=== PATIENT | female | born 2000 | race Two or more races ===

== ENCOUNTER 2019-07-25 23:31 | Emergency (ER) | payer MEDICAID ==
--- NOTE | 2019-07-25 23:44 | ER Document Report ---
ED Medical Screen (RME) - General Stated Complaint: BELLY BUTTON INJURY Time Seen by Provider: 07/25/19 23:39 Mode of Arrival: Ambulatory Information source: Patient Notes: Patient is an otherwise healthy 18-year-old female presenting to the emergency department chief complaint of bleeding from a new piercing on her bellybutton. She states this started around 2:00 this afternoon immediately after having the piercing done. She states it has been continuously bleeding since that time. Active bleeding noted in triage. New dressing applied. I have greeted and performed a rapid initial assessment of this patient. A comprehensive ED assessment and evaluation of the patient, analysis of test results and completion of the medical decision making process will be conducted by additional ED providers. I have specifically instructed the patient or family members with the patient to immediately return to any nursing staff should anything change in the patient's condition or with their chief complaint. Physical Exam - Vital signs Vitals: Temp Pulse Resp BP Pulse Ox 99.1 F 127 H 20 156/102 H 99 07/25/19 23:37 07/25/19 23:37 07/25/19 23:37 07/25/19 23:37 07/25/19 23:37 Course - Vital Signs Vital signs: Temp Pulse Resp BP Pulse Ox 99.1 F 127 H 20 156/102 H 99 07/25/19 23:41 07/25/19 23:37 07/25/19 23:37 07/25/19 23:37 07/25/19 23:37
[2019-07-26] MEDS ORDERED: LIDOCAINE 2%/EPINEPHRINE INJ 20 ML VIAL INJ ONE (01:19)
--- NOTE | 2019-07-26 01:27 | ER Document Report ---
Entered by JADEN AVILA SCRIBE 07/26/19 0116 Acting as scribe for:ANTOINE ONEILL IV, MD ED Wound - General Chief Complaint: Puncture Wound Stated Complaint: BELLY BUTTON INJURY Time Seen by Provider: 07/25/19 23:39 Mode of Arrival: Ambulatory Information source: Patient Notes: This 18 year old female patient presents to the ED today with complaints of bleeding from a new belly button piercing. Patient states that the bleeding started immediately after she got the piercing around 1400 yesterday afternoon and that it has continued to bleed since. She notes pain in that area, which was expected, but denies any other symptoms. Past Medical History - General Information source: Patient - Social History Smoking Status: Never Smoker Cigarette use (# per day): No Chew tobacco use (# tins/day): No Smoking Education Provided: No Family History: Reviewed & Not Pertinent Patient has suicidal ideation: No Patient has homicidal ideation: No Review of Systems - Review of Systems Constitutional: No symptoms reported EENT: No symptoms reported Cardiovascular: No symptoms reported Respiratory: No symptoms reported Gastrointestinal: See HPI, Abdominal pain Genitourinary: No symptoms reported Female Genitourinary: No symptoms reported Musculoskeletal: No symptoms reported Skin: See HPI, Other - Bleeding from belly button piercing Hematologic/Lymphatic: No symptoms reported Neurological/Psychological: No symptoms reported -: Yes All other systems reviewed and negative Physical Exam - Vital signs Vitals: Temp Pulse Resp BP Pulse Ox 99.1 F 127 H 20 156/102 H 99 07/25/19 23:37 07/25/19 23:37 07/25/19 23:37 07/25/19 23:37 07/25/19 23:37 - General General appearance: Alert In distress: None - HEENT Head: Normocephalic, Atraumatic Eyes: Normal Pupils: PERRL - Respiratory Respiratory status: No respiratory distress Chest status: Nontender Breath sounds: Normal Chest palpation: Normal - Cardiovascular Rhythm: Regular Heart sounds: Normal auscultation Murmur: No Friction rub: No Gallop: None auscultated - Abdominal Inspection: Other - Belly button piercing Distension: No distension Bowel sounds: Normal Tenderness: Nontender - Abdomen soft Organomegaly: No organomegaly - Back Back: Normal, Nontender - Extremities General upper extremity: Normal inspection General lower extremity: Normal inspection - Neurological Neuro grossly intact: Yes Orientation: AAOx4 [place]gett Coma Scale Eye Opening: Spontaneous [place] Coma Scale Verbal: Oriented Caio Coma Scale Motor: Obeys Commands [place] Coma Scale Total: 15 - Psychological Associated symptoms: Normal affect, Normal mood - Skin Skin irregularity: other - Belly button piercing with persistent bleeding Course - Re-evaluation Re-evalutation: 07/26/19 01:59 Treatment and plan of care discussed with patient. Patient instructed to return in 5 days for suture removal. Emergency signs and symptoms, reasons to return to the emergency department discussed patient. All questions were answered prior to discharge. - Vital Signs Vital signs: Temp Pulse Resp BP Pulse Ox 100.2 F 110 H 18 162/104 H 99 07/26/19 00:15 07/26/19 00:15 07/26/19 00:15 07/26/19 00:15 07/26/19 00:15 Procedures - Laceration/Wound Repair Abdomen Time completed: 02:00 - To persistently bleeding punctate sites one present in the same Debra her umbilicus and 1 just superior to the umbilicus. The new piercing was left in and sutures were placed above and below where the piercing ends emanating from Wound length (cm): 0.2 Wound's Depth, Shape: Superficial Laceration pre-procedure: Sterile PPE donned, Chloraprep applied, Sterile drapes applied Anesthetic type: 1% Lidocaine w/epi Volume Anesthetic (mLs): 5 Wound explored: Clean Wound Repaired With: Sutures Suture Size/Type: 4:0, Prolene Number of Sutures: 4 - Simple interrupted Layer Closure?: No Post-procedure wound care: Sterile dressing applied Post-procedure NV exam normal: Yes Complications: No Discharge - Discharge Clinical Impression: Puncture wound of abdomen Qualifiers: Encounter type: initial encounter Qualified Code(s): S31.139A - Puncture wound of abdominal wall without foreign body, unspecified quadrant without penetration into peritoneal cavity, initial encounter Condition: Good Disposition: HOME, SELF-CARE Additional Instructions: Return to the Emergency Department without delay if any worse. Follow-up with your doctor or return to the emergency department in 5 days for suture removal. Seek medical care sooner if your piercing sites become very red, swollen, painful or ooze pus or start to persistently bleed again. HOME CARE INSTRUCTIONS & INFORMATION: Thank you for choosing us for your medical needs. We hope you're satisfied with the care you received. After you leave, you must properly care for your problem and, at the same time, observe its progress. Any condition can change. Some illnesses can change rapidly over hours or days. If your condition worsens, return to the Emergency Department or see your physician promptly. ABOUT YOUR X-RAYS AND EKG'S: If you had an EKG or X-rays taken, they have been read by the Emergency Physician. The X-rays and EKG's will also be read by a Radiologist or [employer] within 24 hours. If discrepancies are noted, you will be notified by telephone. Please be certain the ED has a correct telephone number & address where you can be reached. Also, realize that some fractures or abnormalities do not show up on initial X-rays. If your symptoms continue, see your physician. ABOUT YOUR LABORATORY TEST: If you had laboratory tests, the results have been reviewed by the Emergency Physician. Some test results (for example cultures) may not be available for several days. You will be contacted if any test result shows you need additional treatment. Please be certain the ED has a correct telephone number and address where you can be reached. ABOUT YOUR MEDICATIONS: You will receive instructions on how to take your medicine on the prescription label you receive. Additional information may be provided by the Pharmacy. If you have questions afterwards, call the ED for clarification or further instructions. Some prescribed medications may cause drowsiness. Do not perform tasks such as driving a car or operating machinery without consulting your Pharmacist. If you feel you need a refill of pain medication, your condition will need re-evaluation. Please do not call for a refill of any medication. ABOUT YOUR SIGNATURE: Signature of this document acknowledges to followin. Understanding that you received emergency treatment and that you may be released before al medical problems are known or treated. Please be certain the ED has a correct phone number & address where you can be reached. 2. Acknowledgement that you will arrange for follow-up care as recommended. 3. Authorization for the Emergency Physician to provide information to your follow-up Physician in order to maximize your care. AT ANY TIME, IF YOUR SYMPTOMS CHANGE SIGNIFICANTLY OR WORSEN OR YOU DEVELOP NEW SYMPTOMS, RETURN TO THE EMERGENCY DEPARTMENT IMMEDIATELY FOR RE-EVALUATION. OUR GOAL IS TO PROVIDE EXCELLENT MEDICAL CARE! WE HOPE THAT WE HAVE MET YOUR EXPECTATIONS DURING YOUR EMERGENCY DEPARTMENT VISIT AND THAT YOU FEEL YOU HAVE RECEIVED EXCELLENT CARE! I personally performed the services described in the documentation, reviewed and edited the documentation which was dictated to the scribe in my presence, and it accurately records my words and actions.
[2019-07-26 02:22] VITALS: BP 133/75
== END 2019-07-26 02:21 | disposition home or self-care (01) ==
LOC: ER 23:31
DX: S31.139A Puncture wound of abdominal wall without foreign body, unspecified quadrant without penetration into peritoneal cavity, initial encounter (principal); W26.8XXA Contact with other sharp object(s), not elsewhere classified, initial encounter
CPT/HCPCS: 99282; 12001; J3490

== ENCOUNTER 2019-07-31 13:33 | Emergency (ER) | payer OTHER, MEDICAID ==
[2019-07-31 13:46] VITALS: BP 122/71
--- NOTE | 2019-07-31 13:49 | ER Document Report ---
ED Suture/Wound Recheck - General Chief Complaint: Suture Removal Stated Complaint: REMOVAL OF SUTURES Time Seen by Provider: 07/31/19 13:40 Primary Care Provider: [facility] [Provider Group] - Follow up as needed [facility] [Provider Group] - Follow up as needed Mode of Arrival: Ambulatory Information source: Patient Notes: 18-year-old female presented to ED for suture removal from her umbilical area. She states that she had a bellybutton ring placed on the seventh and they somehow hit a artery that bled for about 7 hours and she had to have sutures placed in order to stop the bleeding. She states she was told to have them removed in 5 days. She is now the 13th and is here to have her sutures removed. There is no signs of any infection no bleeding noted. She states she is not having any pain or discomfort. We will remove the sutures at this time. She still has the bellybutton ring in place and there is no signs of infection. - HPI Previous ED treatment: Bellybutton piercing bleeding Quality of pain: No pain Severity: None Pain Level: Denies Context: Other - Bellybutton piercing Symptoms since procedure: No complaints Exacerbated by: Denies Relieved by: Denies - Related Data Allergies/Adverse Reactions: No Known Allergies Allergy (Unverified 07/31/19 13:40) Past Medical History - General Information source: Patient - Social History Smoking Status: Never Smoker Frequency of alcohol use: None Drug Abuse: None Family History: Reviewed & Not Pertinent Patient has homicidal ideation: No - Past Medical History Cardiac Medical History: Reports: None Pulmonary Medical History: Reports: None EENT Medical History: Reports: None Neurological Medical History: Reports: None Endocrine Medical History: Reports: None Renal/ Medical History: Reports: None Malignancy Medical History: Reports: None GI Medical History: Reports: None Musculoskeletal Medical History: Reports None Skin Medical History: Reports None Psychiatric Medical History: Reports: None Traumatic Medical History: Reports: None Review of Systems - Review of Systems Constitutional: No symptoms reported EENT: No symptoms reported Cardiovascular: No symptoms reported Respiratory: No symptoms reported Gastrointestinal: No symptoms reported Genitourinary: No symptoms reported Female Genitourinary: No symptoms reported Musculoskeletal: No symptoms reported Skin: Other - Sutures around the leg is due to a "bellybutton ring " Hematologic/Lymphatic: No symptoms reported Neurological/Psychological: No symptoms reported -: Yes All other systems reviewed and negative Physical Exam - Vital signs Vitals: Temp Pulse Resp BP Pulse Ox 99.1 F 99 H 16 122/71 100 07/31/19 13:39 07/31/19 13:39 07/31/19 13:39 07/31/19 13:39 07/31/19 13:39 Interpretation: Normal - General General appearance: Appears well, Alert - HEENT Head: Normocephalic, Atraumatic Eyes: Normal Pupils: PERRL - Respiratory Respiratory status: No respiratory distress Chest status: Nontender Breath sounds: Normal Chest palpation: Normal - Cardiovascular Rhythm: Regular Heart sounds: Normal auscultation Murmur: No - Abdominal Inspection: Normal, Other - Sutures around both ends of the bellybutton piercing. No redness no inflammation no drainage. Area has healed well no signs of infection Distension: No distension Bowel sounds: Normal Tenderness: Nontender Organomegaly: No organomegaly - Back Back: Normal, Nontender - Extremities General upper extremity: Normal inspection, Nontender, Normal color, Normal ROM, Normal temperature General lower extremity: Normal inspection, Nontender, Normal color, Normal ROM, Normal temperature, Normal weight bearing. No: Bettie's sign - Neurological Neuro grossly intact: Yes Cognition: Normal Orientation: AAOx4 Caio Coma Scale Eye Opening: Spontaneous [place] Coma Scale Verbal: Oriented Caio Coma Scale Motor: Obeys Commands [place] Coma Scale Total: 15 Speech: Normal Motor strength normal: LUE, RUE, LLE, RLE Sensory: Normal - Psychological Associated symptoms: Normal affect, Normal mood - Skin Skin Temperature: Warm Skin Moisture: Dry Skin Color: Normal Course - Re-evaluation Re-evalutation: 07/31/19 22:17 Sutures removed, bacitracin applied, patient was discharged home to follow-up with her primary care doctor. Patient tolerated procedure well. - Vital Signs Vital signs: Temp Pulse Resp BP Pulse Ox 99.1 F 99 H 16 122/71 100 07/31/19 13:40 07/31/19 13:39 07/31/19 13:39 07/31/19 13:39 07/31/19 13:39 Discharge - Discharge Clinical Impression: Visit for suture removal Condition: Stable Disposition: HOME, SELF-CARE Instructions: Suture Removal Additional Instructions: SOAP CLEANSING: Gently wash the wound daily using a mild soap (like Ivory, Phisoderm, Neutrogena). Use warm water, rubbing gently until all debris, ooze, and crusting have been washed from the wound. Allow to dry briefly (about 10 minutes) after cleaning. Repeat this cleansing at least three times a day for the first two days and then once or twice a day. ANTIBIOTIC OINTMENT PROTECTION: Your wounds are such that dressing them is not practical or optional. After cleansing, you should apply a thin coating of antibiotic ointment (Bacitracin, not Neosporin) to the wounds at least three times daily. This lessens infection risk, and may decrease the amount of scarring. Use a q-tip or dull butter knife, not your finger, to apply this ointment. Any debris or ooze which builds up in the ointment should be gently rubbed off with a sterile gauze pad. Harder crusting may need to be gently scrubbed off with a clean wash cloth with soap and warm water, perhaps applying a warm, wet wash cloth to the wound for ten minutes first. Development of redness, severe itching, or blistering may mean allergy to the ointment. See the doctor. FOLLOW-UP CARE: If you have been referred to a physician for follow-up care, call the physicians office for an appointment as you were instructed or within the next two days. If you experience worsening or a significant change in your symptoms, notify the physician immediately or return to the Emergency Department at any time for re-evaluation. Referrals: [facility] [Provider Group] - Follow up as needed [facility] [Provider Group] - Follow up as needed
== END 2019-07-31 13:59 | disposition home or self-care (01) ==
LOC: ER 13:33
DX: S31.12 Laceration with foreign body of abdominal wall without penetration into peritoneal cavity (principal); X58.XXXD Exposure to other specified factors, subsequent encounter

== ENCOUNTER 2019-08-17 10:13 | Emergency (ER) | payer OTHER, MEDICAID ==
[2019-08-17 10:18] VITALS: BP 124/85
[2019-08-17] MEDS ORDERED: AZITHROMYCIN 250 MG TABLET PO ONE (11:06)
[2019-08-17] MEDS ORDERED: LIDOCAINE 1% INJ (10 MG/ML) 10 ML MDV INJ ONE (11:06)
[2019-08-17] MEDS ORDERED: PHENAZOPYRIDINE HCL 200 MG TABLET PO ONE (11:06)
[2019-08-17] MEDS ORDERED: CEFTRIAXONE INJ 1000 MG VIAL IM ONE (11:06)
--- NOTE | 2019-08-17 11:08 | ER Document Report ---
HPI - HPI Patient complains to provider of: UTI Time Seen by Provider: 08/17/19 11:00 Onset: Last week Onset/Duration: Persistent Quality of pain: Burning Pain Level: 3 Context: Patient presents complaining of dysuria and urgency for the past week. Patient is concerned about possible UTI. Patient did finish antibiotics to treat strep throat recently. Patient does have concerns about possible STI. No flank or abdominal pain. Associated Symptoms: denies: Fever, Nausea, Vomiting Exacerbated by: Denies Relieved by: Denies Similar symptoms previously: Yes Recently seen / treated by doctor: Yes - ROS ROS below otherwise negative: Yes Systems Reviewed and Negative: Yes All other systems reviewed and negative - CONSTITUTIONAL Constitutional: DENIES: Fever, Chills - GASTROINTESTINAL Gastrointestinal: DENIES: Abdominal Pain, Nausea, Patient vomiting - URINARY Urinary: REPORTS: Dysuria, Urgency - REPRODUCTIVE Reproductive: DENIES: : - MUSCULOSKELETAL Musculoskeletal: DENIES: Back Pain - DERM Skin Color: Normal Skin Problems: None Past Medical History - General Information source: Patient - Social History Smoking Status: Never Smoker Frequency of alcohol use: None Drug Abuse: None 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 negative: CVA Tenderness-Right, CVA Tenderness-Left - MUSCULOSKELETAL/EXTREMETIES Musculoskeletal/Extremeties: FANNY FROM - NEURO Level of Consciousness: Awake, Alert, Appropriate Motor/Sensory: No Motor Deficit - DERM Integumentary: Warm, Dry, No Rash Course - Re-evaluation Re-evalutation: 08/17/19 Patient with UTI, no concern for pyelonephritis or sepsis at this time. Patient reports mild nausea after taking the antibiotic. Prescription will be written for some antiemetic medication. Discussed worsening signs or symptoms that patient should return immediately for. - Vital Signs Vital signs: Temp Pulse Resp BP Pulse Ox 98.5 F 82 14 124/85 98 08/17/19 10:16 08/17/19 10:16 08/17/19 10:16 08/17/19 10:16 08/17/19 10:16 - Laboratory Laboratory results interpreted by me: 08/17/19 11:58 Labs- All tests 24 hr 08/17/19 08/17/19 11:17 11:17 Urine Color YELLOW Urine Appearance CLOUDY Urine pH 7.0 Ur Specific [place] 1.015 Urine Protein NEGATIVE Urine Glucose (UA) NEGATIVE Urine Ketones NEGATIVE Urine Blood SMALL H Urine Nitrite NEGATIVE Urine Bilirubin NEGATIVE Urine Urobilinogen NEGATIVE Ur Leukocyte Esterase LARGE H Urine WBC (Auto) >182 Urine RBC (Auto) 15 Urine Bacteria (Auto) TRACE Urine WBC Clumps FEW Squamous Epi Cells Auto 6 Urine Mucus (Auto) RARE Urine Ascorbic Acid NEGATIVE Epi Cells (Wet Prep) 4+ EPITHELIALS SEEN Bacteria (Wet Prep) 4+ BACTERIA SEEN Trichomonas (Wet Prep) NO TRICHOMONAS SEEN Vaginal WBC 2+ WBCS SEEN Vaginal Yeast NO YEAST SEEN Discharge - Discharge Clinical Impression: Bacterial vaginosis UTI (urinary tract infection) Qualifiers: Urinary tract infection type: site unspecified Hematuria presence: with hematuria Qualified Code(s): N39.0 - Urinary tract infection, site not specified Condition: Stable Disposition: HOME, SELF-CARE Instructions: Trimethoprim-Sulfa ([facility]), Urinary Anesthetic Agent ([facility]), Urinary Tract Infection ([facility]), Vaginosis, Bacterial ([facility]) Additional Instructions: Return immediately for any new or worsening symptoms Followup with your primary care provider, call tomorrow to make a followup appointment Urine culture is pending, we will call if you need any different treatment Prescriptions: Sulfamethoxazole/Trimethoprim [Bactrim Ds Tablet] 1 each PO BID #14 tablet Metronidazole [Flagyl 500 mg Tablet] 500 mg PO BID #14 tablet Phenazopyridine HCl [Pyridium 200 mg Tablet] 200 mg PO TID #15 tablet Ondansetron [Zofran Odt 4 mg Tablet] 1 tab PO Q6H PRN #10 tab.rapdis PRN Reason: Forms: Return to Work Referrals: [facility] [Provider Group] - Follow up as needed
[2019-08-17] MEDS ORDERED: AZITHROMYCIN 250 MG TABLET ONE (11:18)
[2019-08-17 11:41] LABS: BACTERIA (WET MOUNT) 4+ BACTERIA SEEN; EPITHELIALS (WET MOUNT) 4+ EPITHELIALS SEEN; T.VAGINALIS (WET MOUNT) NO TRICHOMONAS SEEN; WBCS (WET MOUNT) 2+ WBCS SEEN; YEAST (WET MOUNT) NO YEAST SEEN
[2019-08-17 11:53] LABS: APPEARANCE,URINE CLOUDY; BILIRUBIN,URINE NEGATIVE (NEGATIVE); COLOR,URINE YELLOW; GLUCOSE, URINE NEGATIVE (NEGATIVE); KETONES,URINE NEGATIVE (NEGATIVE); LEUKOCYTE ESTERASE,URINE LARGE (NEGATIVE); NITRITE,URINE NEGATIVE (NEGATIVE); PROTEIN,URINE NEGATIVE (NEGATIVE); URINE SPECIFIC GRAVITY 1.015; UROBILINOGEN,URINE NEGATIVE mg/dL (<2.0)
[2019-08-17 13:09] LABS: CHLAM PCR NOT DETECTED (NOT DETECT)
== END 2019-08-17 12:03 | disposition home or self-care (01) ==
LOC: ER 10:13
DX: N30.00 Acute cystitis without hematuria (principal); N76.0 Acute vaginitis; B96.89 Other specified bacterial agents as the cause of diseases classified elsewhere
CPT/HCPCS: 99283; 96372; 87086; 87210; 87088; 81001; 87491; 87591; J3490; J0696; 87186

== ENCOUNTER 2019-08-23 20:22 | Emergency (ER) | payer OTHER, MEDICAID ==
--- NOTE | 2019-08-23 23:59 | ER Document Report ---
ED General - General Chief Complaint: Urinary Problem Stated Complaint: FEVER/WEAKNESS Time Seen by Provider: 08/23/19 23:24 Notes: Patient is a 18-year-old female that comes emergency department for chief complaint of a low-grade fever this afternoon with generalized body aches, lower back pain, pain in her lower abdomen, and painful urination. She was seen here 1 week ago, had a negative work-up for STDs, was started on Bactrim and Flagyl for BV and urinary tract infection. She states that she has not yet completed her medications for this. 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 She denies shortness of breath, cough, chest pain, headache, neck stiffness, or any current complaints. She takes no daily medications, denies medical history otherwise. - Related Data Allergies/Adverse Reactions: No Known Allergies Allergy (Unverified 07/31/19 13:40) Past Medical History - General Information source: Patient - Social History Smoking Status: Never Smoker Chew tobacco use (# tins/day): No Frequency of alcohol use: None Drug Abuse: None Lives with: Family Family History: Reviewed & Not Pertinent Patient has homicidal ideation: No Renal/ Medical History: Reports: Hx Ovarian Cysts - Immunizations Immunizations up to date: Yes Hx Diphtheria, Pertussis, Tetanus Vaccination: Yes Review of Systems - Review of Systems Constitutional: See HPI EENT: No symptoms reported Cardiovascular: No symptoms reported Respiratory: No symptoms reported Gastrointestinal: See HPI Genitourinary: See HPI Female Genitourinary: No symptoms reported Musculoskeletal: See HPI Skin: No symptoms reported Hematologic/Lymphatic: No symptoms reported Neurological/Psychological: No symptoms reported Physical Exam - Vital signs Vitals: Temp Pulse Resp BP Pulse Ox 99.8 F 99 H 20 117/86 H 100 08/23/19 21:11 08/23/19 21:11 08/23/19 21:11 08/23/19 21:11 08/23/19 21:11 - Notes Notes: GENERAL: Alert, interacts well. No acute distress. Smiling, talkative, well- appearing HEAD: Normocephalic, atraumatic. EYES: Pupils equal, round, and reactive to light. Extraocular movements intact. ENT: Oral mucosa moist, tongue midline. Oropharynx unremarkable. Airway patent. Nares patent, sinuses non-tender, ear canals unremarkable, TM's intact. NECK: Full range of motion. Supple. Trachea midline. No lymphadenopathy. LUNGS: Clear to auscultation bilaterally, no wheezes, rales, or rhonchi. No respiratory distress. Non-tender chest wall. HEART: Regular rate and rhythm. No murmur ABDOMEN: Soft, non-tender. Non-distended. EXTREMITIES: Moves all 4 extremities spontaneously. No edema, normal radial and dorsalis pedis pulses bilaterally. No cyanosis. BACK: no cervical, thoracic, lumbar midline tenderness. No saddle anesthesia, normal distal neurovascular exam. Moves all extremities in full range of motion. NEUROLOGICAL: Alert and oriented x3. Normal speech. Cranial nerves II through XII grossly intact. Strength 5/5 in all extremities. PSYCH: Normal affect, normal mood. SKIN: Warm, dry, normal turgor. No rashes or lesions noted. Course - Re-evaluation Re-evalutation: Urine culture from UTI about a week ago reviewed and shows sensitivity to Bactrim. Patient is on Bactrim and Flagyl currently. Urine today shows ketones but no infection. CBC shows mild leukopenia, chemistry nonspecific, patient looks great on exam with soft abdomen, clear lungs, no nuchal rigidity, unremarkable ENT exam, and she is smiling and well-appearing. Vital signs unremarkable. 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 Discussed expectations, follow-up, and return precautions. Patient states understanding and agreement with plan. Stable and well-appearing at time of discharge. - Vital Signs Vital signs: Temp Pulse Resp BP Pulse Ox 99.2 F 80 16 111/68 100 08/24/19 02:00 08/24/19 02:00 08/24/19 02:00 08/24/19 02:00 08/24/19 02:00 - Laboratory Result Diagrams: 08/24/19 00:49 08/24/19 00:49 Laboratory results interpreted by me: 08/24/19 08/24/19 08/24/19 00:15 00:49 00:49 WBC 3.4 L RDW 14.3 H [place] % (Auto) 19.9 H Sodium 132.7 L Carbon Dioxide 21 L BUN 4 L AST 33 H Alkaline Phosphatase 48 L Urine Ketones TRACE H Urine Ascorbic Acid 40 H Discharge - Discharge Clinical Impression: Body aches, Dysuria Fever Qualifiers: Fever type: unspecified Qualified Code(s): R50.9 - Fever, unspecified Condition: Stable Disposition: HOME, SELF-CARE Additional Instructions: Your urine culture from last visit shows that the antibiotic you are taking will kill the infection. Your urine does not appear infected as well. Your overall work-up and symptoms are most suggestive of viral illness, this should simply resolve with time. Take 1000 mg of Tylenol and 600 mg of ibuprofen every 6 hours for fever/body aches, drink plenty fluids, rest. You have been tested for COVID-19, you will be contacted with results, see additional details below. Return for any concerning symptoms including difficulty breathing, vomiting, or any other concerning or worsening symptoms. As a person under investigation for COVID-19, the [place] Department of Health and Human Services (division on public health) advises you to adhere to the following guidance until your test results are reported to you. If your test result is positive, you will receive additional information from your provider and your local health department at that time. Remain at home until you are cleared by the health provider or public health authorities. Keep a log of visitors to your home, notify any visitors to your home of your isolation status. If you plan to move to a new address or leave the [facility], notify the local [facility] department in your [facility]. Call your Doctor or seek care if you have an urgent medical need. Before seeking medical care, call him to get instructions from the provider before arriving at the medical office, clinic, or hospital. Notify them that you are being tested for the virus (COVID-19) so that arrangements can be made, as necessary, to prevent transmission to others in the healthcare setting. Next, notify the local health department in your county. If a medical emergency arises and you need to call 911, inform the first responders that you are being tested for the virus that causes COVID-19. Next, notify the local health department in your county. Forms: Return to Work
[2019-08-24 00:51] LABS: APPEARANCE,URINE CLEAR; BILIRUBIN,URINE NEGATIVE (NEGATIVE); COLOR,URINE YELLOW; GLUCOSE, URINE NEGATIVE (NEGATIVE); KETONES,URINE TRACE mg/dL (NEGATIVE); LEUKOCYTE ESTERASE,URINE NEGATIVE (NEGATIVE); NITRITE,URINE NEGATIVE (NEGATIVE); PROTEIN,URINE NEGATIVE (NEGATIVE); URINE SPECIFIC GRAVITY 1.015; UROBILINOGEN,URINE NEGATIVE mg/dL (<2.0)
[2019-08-24 00:58] LABS: ABSOLUTE EOSINOPHILS # (AUTO) 0.1 10^3/uL (0.0-0.6); ABSOLUTE LYMPHOCYTES (AUTO) 0.8 10^3/uL (0.5-4.7); ABSOLUTE MONOCYTES (AUTO) 0.7 10^3/uL (0.1-1.4); ABSOLUTE NEUT (AUTO) 1.8 10^3/uL (1.7-8.2); BASOPHILS % (AUTO) 0.9 % (0-2); HEMATOCRIT 36.4 % (36.0-47.0); HEMOGLOBIN 12.8 g/dL (12.0-15.5); LYMPHOCYTES % (AUTO) 22.8 % (13-45); MEAN CORPUSCULAR HEMOGLOBIN 29.5 pg (27.0-33.4); MEAN CORPUSCULAR VOLUME 84 fl (80-97); MONOCYTES % (AUTO) 19.9 % (3-13); PLATELET COUNT 250 10^3/uL (150-450); RED BLOOD COUNT 4.32 10^6/uL (3.72-5.28); RED CELL DISTRIBUTION WIDTH 14.3 % (11.5-14.0); SEGMENTED NEUTROPHILS % (AUTO) 53.4 % (42-78); TOTAL CELLS COUNTED % (AUTO) 100 %; WHITE BLOOD COUNT 3.4 10^3/uL (4.0-10.5)
[2019-08-24 01:23] LABS: ALBUMIN 4.1 g/dL (3.7-5.6); ALKALINE PHOSPHATASE 48 U/L (50-135); ANION GAP 9 (5-19); ASPARTATE AMINO TRANSFERASE 33 U/L (5-30); BILIRUBIN,TOTAL 0.2 mg/dL (0.2-1.3); BLOOD UREA NITROGEN 4 mg/dL (7-20); CALCIUM 9.1 mg/dL (8.4-10.2); CARBON DIOXIDE 21 mmol/L (22-30); CHLORIDE 103 mmol/L (98-107); GLUCOSE 108 mg/dL (75-110); POTASSIUM 4.2 mmol/L (3.6-5.0); TOTAL PROTEIN 7.2 g/dL (6.3-8.2)
[2019-08-24 02:04] VITALS: BP 111/68
== END 2019-08-24 02:10 | disposition home or self-care (01) ==
LOC: ER 20:22
DX: M79.10 Myalgia, unspecified site (principal); R30.0 Dysuria; R50.9 Fever, unspecified; R53.1 Weakness; Z20.828 Contact with and (suspected) exposure to other viral communicable diseases
CPT/HCPCS: 99284; 36415; 87086; 85025; 87635; 81025; 87088; 80053; 81001; C9803; 87186

== ENCOUNTER 2019-10-23 15:37 | Emergency (ER) | payer OTHER, MEDICAID ==
[2019-10-23] MEDS ORDERED: NORMAL SALINE 1000 ML 1,000 ML IV ONE (15:48)
[2019-10-23] MEDS ORDERED: ONDANSETRON HCL INJ/PF 4 MG/2 ML SDV IV ONE (15:48)
--- NOTE | 2019-10-23 15:51 | ER Document Report ---
ED Medical Screen (RME) - General Chief Complaint: Pain With Urination Stated Complaint: PAINFUL URINATION,BACK PAIN Time Seen by Provider: 10/23/19 15:39 Mode of Arrival: Ambulatory Information source: Patient Notes: 19-year-old female presents to ED for complaint of flank pain feeling sick dizziness blurred vision. She states she was seen 2 days ago at urgent care they diagnosed her with a UTI and started on Bactrim DS. She states she has become more dizzy has blurred vision and is feeling more sick. She states they gave her Toradol and Rocephin IM while in the urgent care and then sent her home with a prescription for Bactrim. She states she has taken the Bactrim for 2 days but the last time she took Bactrim she did get sick and was blurry vision. She states the pain in her urine the frequency and the back pain have all gotten much worse in the last 2 days. I have greeted and performed a rapid initial assessment of this patient. A comprehensive ED assessment and evaluation of the patient, analysis of test results and completion of medical decision making process will be conducted by an additional ED providers. - Related Data Allergies/Adverse Reactions: sulfamethoxazole [From Bactrim] Adverse Reaction (Verified 10/23/19 15:42) Vomiting trimethoprim [From Bactrim] Adverse Reaction (Verified 10/23/19 15:42) Vomiting Past Medical History Renal/ Medical History: Reports: Hx Ovarian Cysts - Immunizations Immunizations up to date: Yes Hx Diphtheria, Pertussis, Tetanus Vaccination: Yes Physical Exam - Vital signs Vitals: Temp Pulse Resp BP Pulse Ox 98.1 F 107 H 16 132/85 H 100 10/23/19 15:41 10/23/19 15:41 10/23/19 15:41 10/23/19 15:41 10/23/19 15:41 Course - Vital Signs Vital signs: Temp Pulse Resp BP Pulse Ox 98.1 F 107 H 16 132/85 H 100 10/23/19 15:41 10/23/19 15:41 10/23/19 15:41 10/23/19 15:41 10/23/19 15:41
[2019-10-23 16:12] LABS: ABSOLUTE EOSINOPHILS # (AUTO) 0.3 10^3/uL (0.0-0.6); ABSOLUTE LYMPHOCYTES (AUTO) 0.7 10^3/uL (0.5-4.7); ABSOLUTE MONOCYTES (AUTO) 0.4 10^3/uL (0.1-1.4); BASOPHILS % (AUTO) 0.7 % (0-2); EOSINOPHILS % (AUTO) 5.3 % (0-6); HEMATOCRIT 41.1 % (36.0-47.0); HEMOGLOBIN 14.4 g/dL (12.0-15.5); LYMPHOCYTES % (AUTO) 11.4 % (13-45); MEAN CORPUSCULAR HEMOGLOBIN 29.3 pg (27.0-33.4); MEAN CORPUSCULAR HGB CONC 35.1 g/dL (32.0-36.0); MEAN CORPUSCULAR VOLUME 84 fl (80-97); MONOCYTES % (AUTO) 6.3 % (3-13); PLATELET COUNT 308 10^3/uL (150-450); RED BLOOD COUNT 4.93 10^6/uL (3.72-5.28); RED CELL DISTRIBUTION WIDTH 14.9 % (11.5-14.0); SEGMENTED NEUTROPHILS % (AUTO) 76.3 % (42-78); TOTAL CELLS COUNTED % (AUTO) 100 %; WHITE BLOOD COUNT 6.5 10^3/uL (4.0-10.5)
[2019-10-23] MEDS ORDERED: KETOROLAC TROMETHAMINE INJ/PF 30 MG/1 ML SDV IV ONE (16:23)
--- NOTE | 2019-10-23 16:24 | ER Document Report ---
ED GI/ - General Chief Complaint: Flank Pain Stated Complaint: PAINFUL URINATION,BACK PAIN Time Seen by Provider: 10/23/19 15:39 Mode of Arrival: Ambulatory Information source: Patient Notes: This 19-year-old female presents to the emergency department with a 2-week history of dysuria, urgency frequency. States that she has been seen at multiple urgent cares and was told that her urine was negative and was not treated. On she was seen at a local urgent care, the urine revealed significant infection, she was given a IM injection of Rocephin and started on Bactrim DS. Patient states that over the past 24 hours she is developed fever, increasing left flank and abdominal discomfort. She is also had nausea, vomiting and feeling lightheaded and dizzy. She has a history of a UTI in the past, POCS and is otherwise a healthy 19-year-old. - Related Data Allergies/Adverse Reactions: sulfamethoxazole [From Bactrim] Adverse Reaction (Verified 10/23/19 15:42) Vomiting trimethoprim [From Bactrim] Adverse Reaction (Verified 10/23/19 15:42) Vomiting Home Medications: Past Medical History - General Information source: Patient - Social History Smoking Status: Never Smoker Frequency of alcohol use: None Drug Abuse: None Family History: Reviewed & Not Pertinent Renal/ Medical History: Reports: Hx Ovarian Cysts - Immunizations Immunizations up to date: Yes Hx Diphtheria, Pertussis, Tetanus Vaccination: Yes Review of Systems - Review of Systems Notes: Constitutional: Negative for fever. HENT: Negative for sore throat. Eyes: Negative for visual changes. Cardiovascular: Negative for chest pain. Respiratory: Negative for shortness of breath. Gastrointestinal: See HPI Genitourinary: See HPI Musculoskeletal: Negative for back pain. Skin: Negative for rash. Neurological: Negative for headaches, weakness or numbness. 10 point ROS negative except as marked above and in HPI. Physical Exam - Vital signs Vitals: Temp Pulse Resp BP Pulse Ox 98.1 F 107 H 16 132/85 H 100 10/23/19 15:41 10/23/19 15:41 10/23/19 15:41 10/23/19 15:41 10/23/19 15:41 - Notes Notes: PHYSICAL EXAMINATION: Physical Exam: General: Well-nourished well-developed 19-year-old female in no acute distress HEENT: NC/AT, pupils equal round and reactive to light, MM moist,nares clear, oropharynx clear, airway patent Neck: supple, no adenopathy, no masses. Good range of motion Lungs: clear, no wheezing, no rales no rhonchi CVS: Regular rate and rhythm no murmur gallop or rub Abdomen: Soft, active, nontender, no masses, no hepatosplenomegaly Back: + CVA tenderness left flank Ext: No edema, clubbing or cyanosis. Neuro: Alert and responsive, moving all 4 extremities on command, cranial nerves intact, no focal findings Skin: Intact no open lesions, no rash PSYCH: Normal mood, normal affect. Course - Re-evaluation Re-evalutation: 10/23/19 19:35 Patient states that she is doing much better at this time, her nausea has resolved and her back pain has also improved. Urine is positive for leukocytes and CT of the abdomen and pelvis is negative for kidney stones or findings s uggestive of pyelonephritis. I explained to the patient that she can be treated as an outpatient we will give her medicines for nausea and pain as well as a change of antibiotic. Patient is in agreement with this plan is ready for discharge. - Vital Signs Vital signs: Temp Pulse Resp BP Pulse Ox 98.1 F 107 H 16 132/85 H 100 10/23/19 15:41 10/23/19 15:41 10/23/19 15:41 10/23/19 15:41 10/23/19 15:41 - Laboratory Result Diagrams: 10/23/19 15:58 10/23/19 15:58 Laboratory results interpreted by me: 10/23/19 10/23/19 10/23/19 15:58 15:58 16:33 RDW 14.9 H Lymph % (Auto) 11.4 L BUN 5 L Urine Protein 30 H Urine Blood MODERATE H Ur Leukocyte Esterase TRACE H 10/23/19 19:37 I have reviewed laboratory data and used this information for the treatment decisions regarding the patient. - Diagnostic Test Radiology reviewed: Image reviewed, Reports reviewed Radiology results interpreted by me: 10/23/19 19:36 CT abdomen and pelvis without contrast: No acute ureteral stone, no findings compatible with pyelonephritis. Discharge - Discharge Clinical Impression: Nausea Urinary tract infection Qualifiers: Urinary tract infection type: site unspecified Hematuria presence: with hematuria Qualified Code(s): N39.0 - Urinary tract infection, site not specified Back pain Qualifiers: Back pain location: low back pain Chronicity: unspecified Back pain laterality: left Sciatica presence: without sciatica Qualified Code(s): M54.5 - Low back pa in Condition: Good Disposition: HOME, SELF-CARE Instructions: Cephalexin ([facility]), Urinary Tract Infection ([facility]) Additional Instructions: You were seen in the emergency department today with urinary tract infection and secondary symptoms of nausea and back pain. You are being discharged home with medications for nausea and for pain as well as a change of antibiotics. Please take these medications as prescribed drink plenty of fluids and follow-up with your primary care doctor as needed. If your symptoms are worsening or if you have other concerns you may return to the emergency department for further evaluation and treatment HOME CARE INSTRUCTIONS & INFORMATION: Thank you for choosing us for your medical needs. We hope you're satisfied with the care you received. After you leave, you must properly care for your problem and, at the same time, observe its progress. Any condition can change. Some illnesses can change rapidly over hours or days. If your condition worsens, return to the Emergency Department or see your physician promptly. ABOUT YOUR X-RAYS AND EKG'S: If you had an EKG or X-rays taken, they have been read by the Emergency Physician. The X-rays and EKG's will also be read by a Radiologist or Hearing Aid Assembly Supervisor within 24 hours. If discrepancies are noted, you will be notified by telephone. Please be certain the ED has a correct telephone number & address where you can be reached. Also, realize that some fractures or abnormalities do not show up on initial X-rays. If your symptoms continue, see your physician. ABOUT YOUR LABORATORY TEST: If you had laboratory tests, the results have been reviewed by the Emergency Physician. Some test results (for example cultures) may not be available for several days. You will be contacted if any test result shows you need additional treatment. Please be certain the ED has a correct telephone number and address where you can be reached. ABOUT YOUR MEDICATIONS: You will receive instructions on how to take your medicine on the prescription label you receive. Additional information may be provided by the Pharmacy. If you have questions afterwards, call the ED for clarification or further instructions. Some prescribed medications may cause drowsiness. Do not perform tasks such as driving a car or operating machinery without consulting your Pharmacist. If you feel you need a refill of pain medication, your condition will need re-evaluation. Please do not call for a refill of any medication. ABOUT YOUR SIGNATURE: Signature of this document acknowledges to followin. Understanding that you received emergency treatment and that you may be released before al medical problems are known or treated. Please be certain the ED has a correct phone number & address where you can be reached. 2. Acknowledgement that you will arrange for follow-up care as recommended. 3. Authorization for the Emergency Physician to provide information to your follow-up Physician in order to maximize your care. AT ANY TIME, IF YOUR SYMPTOMS CHANGE SIGNIFICANTLY OR WORSEN OR YOU DEVELOP NEW SYMPTOMS, RETURN TO THE EMERGENCY DEPARTMENT IMMEDIATELY FOR RE-EVALUATION. OUR GOAL IS TO PROVIDE EXCELLENT MEDICAL CARE! WE HOPE THAT WE HAVE MET YOUR EXPECTATIONS DURING YOUR EMERGENCY DEPARTMENT VISIT AND THAT YOU FEEL YOU HAVE RECEIVED EXCELLENT CARE! Prescriptions: Cephalexin Monohydrate [Keflex 500 mg Capsule] 500 mg PO Q8 10 Days #30 capsule Ondansetron [Zofran Odt 4 mg Tablet] 1 - 2 tab PO Q4H PRN #10 tab.rapdis PRN Reason: For Nausea/Vomiting Ondansetron [Zofran Odt 4 mg Tablet] 1 - 2 tab PO Q4H PRN #12 tab.rapdis PRN Reason: For Nausea/Vomiting
[2019-10-23 16:27] LABS: ALBUMIN 4.8 g/dL (3.5-5.0); ALKALINE PHOSPHATASE 55 U/L (38-126); ANION GAP 12 (5-19); ASPARTATE AMINO TRANSFERASE 25 U/L (14-36); BILIRUBIN,DIRECT 0.3 mg/dL (0.0-0.4); BILIRUBIN,TOTAL 0.7 mg/dL (0.2-1.3); BLOOD UREA NITROGEN 5 mg/dL (7-20); CALCIUM 9.6 mg/dL (8.4-10.2); CARBON DIOXIDE 23 mmol/L (22-30); CHLORIDE 103 mmol/L (98-107); GLUCOSE 108 mg/dL (75-110); POTASSIUM 3.9 mmol/L (3.6-5.0); TOTAL PROTEIN 8.1 g/dL (6.3-8.2)
[2019-10-23 17:14] LABS: APPEARANCE,URINE SLIGHTLY-CLOUDY; BILIRUBIN,URINE NEGATIVE (NEGATIVE); COLOR,URINE YELLOW; GLUCOSE, URINE NEGATIVE (NEGATIVE); KETONES,URINE NEGATIVE (NEGATIVE); LEUKOCYTE ESTERASE,URINE TRACE (NEGATIVE); NITRITE,URINE NEGATIVE (NEGATIVE); PROTEIN,URINE 30 mg/dL (NEGATIVE); URINE SPECIFIC GRAVITY 1.016; UROBILINOGEN,URINE NEGATIVE mg/dL (<2.0)
--- NOTE | 2019-10-23 17:44 | RADIOLOGY REPORT (SQ) ---
EXAM DESCRIPTION: CT ABD/PELVIS NO ORAL OR IV IMAGES COMPLETED DATE/TIME: 10/23/2019 5:23 pm REASON FOR STUDY: flank pain hematuria COMPARISON: None. TECHNIQUE: CT scan of the abdomen and pelvis performed without intravenous or oral contrast. Images reviewed with lung, soft tissue, and bone windows. Reconstructed coronal and sagittal MPR images revi ewed. All images stored on PACS. All CT scanners at this facility use dose modulation, iterative reconstruction, and/or weight based d osing when appropriate to reduce radiation dose to as low as reasonably achievable (ALARA). [facility]: Dose Right [facility]: CareDose [facility]: Dose Right [facility]: Teradose 4D [facility]: [employer] RADIATION DOSE: CT Rad equipment meets quality standard of care and radiation dose reduction techniq ues were employed. CTDIvol: 5.2 mGy. DLP: 263 mGy-cm.mGy. LIMITATIONS: None. FINDINGS: LOWER CHEST: No significant findings. No nodules or infiltrates. NON-CONTRASTED LIVER, SPLEEN, ADRENALS: Evaluation limited by lack of IV contrast. No identified sign ificant masses. PANCREAS: No masses. No peripancreatic inflammatory changes. GALLBLADDER: No identified stones by CT criteria. No inflammatory changes to suggest cholecystitis. RIGHT KIDNEY AND URETER: No solid masses. No significant calcification. No hydronephrosis or hydroure ter. LEFT KIDNEY AND URETER: No solid masses. No significant calcification. No hydronephrosis or hydrouret er. AORTA AND RETROPERITONEUM: No aneurysm. No retroperitoneal masses or adenopathy. BOWEL AND PERITONEAL CAVITY: No obvious masses or inflammatory changes. No free fluid. APPENDIX: Normal. PELVIS, BLADDER, AND ABDOMINAL WALL:No abnormal masses. No free fluid. Bladder normal. BONES: No significant findings. OTHER: No other significant finding. IMPRESSION: NO SIGNIFICANT OR ACUTE PROCESS IN THE ABDOMEN OR PELVIS. TECHNICAL DOCUMENTATION: JOB ID: [id number] Quality ID # [id number]: Final reports with documentation of one or more dose reduction techniques (e.g., Au tomated exposure control, adjustment of the mA and/or kV according to patient size, use of iterative reconstruction technique) 2010 [employer]- All Rights Reserved Reading location - IP/workstation name: [email or web address] [id number]
[2019-10-23] MEDS ORDERED: CEFTRIAXONE INJ 1000 MG VIAL IV ONE (17:51)
[2019-10-23 20:40] VITALS: BP 123/73
== END 2019-10-23 20:33 | disposition home or self-care (01) ==
LOC: ER 15:37
DX: N39.0 Urinary tract infection, site not specified (principal); M54.5 Low back pain; R30.0 Dysuria; R10.9 Unspecified abdominal pain; R11.0 Nausea
CPT/HCPCS: 99285; 96361; 96375; 96365; 36415; 87086; 84703; 85025; 80053; 81001; 74176; J1885; J0696; J2405; J7030

== ENCOUNTER 2020-03-06 17:32 | Emergency (ER) | payer MEDICAID, OTHER ==
[2020-03-06] MEDS ORDERED: NORMAL SALINE 1000 ML 1,000 ML IV ONE (17:46)
[2020-03-06] MEDS ORDERED: METOCLOPRAMIDE HCL 10 MG TABLET PO ONE (17:47)
--- NOTE | 2020-03-06 17:48 | ER Document Report ---
ED Medical Screen (RME) - General Chief Complaint: Nausea/Vomiting Stated Complaint: NAUSEA/VOMITING 14 WKS Time Seen by Provider: 03/06/20 17:43 Mode of Arrival: Ambulatory Information source: Patient Notes: 19-year-old female presented to ED for complaint of nausea and vomiting x24 hours. She states she is 14 weeks . She states she has had some chills. She states she has had nausea off and on while she was but never where it was all day and she cannot keep anything down. She is alert oriented respirations regular nonlabored speaking in full sentences. She states she did try Zofran one time when she was not and it did not help her nausea. She states she does not smoke drink or use any illicit drugs. She states her last menstrual period was 11/27/2019 I have greeted and performed a rapid initial assessment of this patient. A comprehensive ED assessment and evaluation of the patient, analysis of test results and completion of medical decision making process will be conducted by an additional ED providers. - Related Data Allergies/Adverse Reactions: sulfamethoxazole [From Bactrim] Adverse Reaction (Verified 10/23/19 15:42) Vomiting trimethoprim [From Bactrim] Adverse Reaction (Verified 10/23/19 15:42) Vomiting Past Medical History Renal/ Medical History: Reports: Hx Ovarian Cysts - Immunizations Immunizations up to date: Yes Hx Diphtheria, Pertussis, Tetanus Vaccination: Yes Physical Exam - Vital signs Vitals: Temp Pulse Resp BP Pulse Ox 98.9 F 101 H 18 113/80 98 03/06/20 17:44 03/06/20 17:44 03/06/20 17:44 03/06/20 17:44 03/06/20 17:44 Course - Vital Signs Vital signs: Temp Pulse Resp BP Pulse Ox 98.9 F 101 H 18 113/80 98 03/06/20 17:44 03/06/20 17:44 03/06/20 17:44 03/06/20 17:44 03/06/20 17:44
[2020-03-06 18:35] LABS: ABSOLUTE LYMPHOCYTES (AUTO) 0.9 10^3/uL (0.5-4.7); ABSOLUTE MONOCYTES (AUTO) 0.5 10^3/uL (0.1-1.4); ABSOLUTE NEUT (AUTO) 6.9 10^3/uL (1.7-8.2); BASOPHILS % (AUTO) 0.4 % (0-2); EOSINOPHILS % (AUTO) 0.1 % (0-6); HEMATOCRIT 37.9 % (36.0-47.0); HEMOGLOBIN 13.5 g/dL (12.0-15.5); LYMPHOCYTES % (AUTO) 10.5 % (13-45); MEAN CORPUSCULAR HEMOGLOBIN 29.7 pg (27.0-33.4); MEAN CORPUSCULAR HGB CONC 35.6 g/dL (32.0-36.0); MEAN CORPUSCULAR VOLUME 84 fl (80-97); MONOCYTES % (AUTO) 5.5 % (3-13); PLATELET COUNT 242 10^3/uL (150-450); RED BLOOD COUNT 4.53 10^6/uL (3.72-5.28); SEGMENTED NEUTROPHILS % (AUTO) 83.5 % (42-78); TOTAL CELLS COUNTED % (AUTO) 100 %; WHITE BLOOD COUNT 8.3 10^3/uL (4.0-10.5)
[2020-03-06 18:48] LABS: ALBUMIN 4.2 g/dL (3.5-5.0); ALKALINE PHOSPHATASE 60 U/L (38-126); ANION GAP 6 (5-19); ASPARTATE AMINO TRANSFERASE 22 U/L (14-36); BILIRUBIN,DIRECT 0.1 mg/dL (0.0-0.4); BILIRUBIN,TOTAL 0.4 mg/dL (0.2-1.3); BLOOD UREA NITROGEN 3 mg/dL (7-20); CALCIUM 9.6 mg/dL (8.4-10.2); CARBON DIOXIDE 26 mmol/L (22-30); CHLORIDE 102 mmol/L (98-107); GLUCOSE 96 mg/dL (75-110); POTASSIUM 3.8 mmol/L (3.6-5.0); TOTAL PROTEIN 7.4 g/dL (6.3-8.2)
[2020-03-06 19:10] LABS: APPEARANCE,URINE SLIGHTLY-CLOUDY; BILIRUBIN,URINE NEGATIVE (NEGATIVE); COLOR,URINE YELLOW; GLUCOSE, URINE NEGATIVE (NEGATIVE); KETONES,URINE 80 mg/dL (NEGATIVE); LEUKOCYTE ESTERASE,URINE NEGATIVE (NEGATIVE); NITRITE,URINE NEGATIVE (NEGATIVE); PROTEIN,URINE 30 mg/dL (NEGATIVE); URINE SPECIFIC GRAVITY 1.018; UROBILINOGEN,URINE NEGATIVE mg/dL (<2.0)
--- NOTE | 2020-03-06 19:43 | ER Document Report ---
ED GI/ - General Chief Complaint: Nausea/Vomiting Stated Complaint: NAUSEA/VOMITING 14 WKS Time Seen by Provider: 03/06/20 17:43 Primary Care Provider: ALEX LEDESMA PA-C [Primary Care Provider] - Follow up as needed OLAMIDE ANTON MD [ACTIVE STAFF] - Follow up in 3-5 days Mode of Arrival: Ambulatory - [facility] Notes: 03/06/20 19:40 Patient is a 19-year-old female who is 14 weeks and a G1, P0 who presents with nausea and vomiting for the past 24 hours. Patient states she has had a slight bit of diarrhea that has resolved. She has had nausea and vomiting. She states she is vomiting clear fluid. She has been unable to keep anything down. She has not had any significance morning sickness up until now. [facility] and has good follow-up. She does not have any nausea medication at home because she has not needed it. No chest pain or shortness of breath. No lightheadedness or headaches. No fevers. No abdominal pain. She denies any vaginal bleeding or concerns for the . No urinary symptoms. 03/06/20 20:55 - Related Data Allergies/Adverse Reactions: sulfamethoxazole [From Bactrim] Adverse Reaction (Verified 03/06/20 18:54) Vomiting trimethoprim [From Bactrim] Adverse Reaction (Verified 03/06/20 18:54) Vomiting Past Medical History - General Information source: Patient - Social History Smoking Status: Never Smoker Family History: Reviewed & Not Pertinent Renal/ Medical History: Reports: Hx Ovarian Cysts - Immunizations Immunizations up to date: Yes Hx Diphtheria, Pertussis, Tetanus Vaccination: Yes Review of Systems - Review of Systems Notes: CONSTITUTIONAL: No fever, fatigue or weight loss. SKIN: No rash. HENT: No congestion, ear pain, or sore throat. EYES: No recent vision problems or eye pain. CARDIOVASCULAR: No chest pain or edema. RESPIRATORY: No cough, shortness of breath, congestion, or wheezing. GASTROINTESTINAL: No abdominal pain. Positive for nausea and vomiting. Positive for diarrhea that has resolved. GENITOURINARY: No dysuria. No vaginal bleeding. MUSCULOSKELETAL: No joint pain or swelling. LYMPHATIC: No swollen glands. NEUROLOGIC: No seizures. No headache, focal weakness or sensory changes. HEMATOLOGIC: No unusual bruising or bleeding. PSYCHIATRIC: No depression or anxiety. Physical Exam - Vital signs Vitals: Temp Pulse Resp BP Pulse Ox 98.9 F 101 H 18 113/80 98 03/06/20 17:44 03/06/20 17:44 03/06/20 17:44 03/06/20 17:44 03/06/20 17:44 - General General appearance: Appears well In distress: None Notes: VITAL SIGNS: Within normal limits. GENERAL: No acute distress, non-toxic appearance. HEAD: Normal with no signs of head trauma. EYES: Conjunctiva normal, no discharge. EARS: Hearing grossly intact. NOSE: Normal. NECK: Normal range of motion, no tenderness, supple, no lymphadenopathy, No adenopathy, no JVD. CHEST: Clear breath sounds bilaterally. No wheezes, rales, or rhonchi. CARDIAC: Regular rate and rhythm. VASCULAR: No Edema. Peripheral pulses normal and equal in all extremities. ABDOMEN: Normal and soft with no tenderness, no masses or pulsatile masses. GENITOURINARY: Normal, No tenderness MUSCULOSKELETAL: Good range of motion of all major joints. Extremities without clubbing, cyanosis or edema. NEUROLOGICAL: Alert and oriented x 3. No focal sensory or strength deficits. Speech normal. Follows commands appropriately. PSYCHIATRIC: Normal Affect, judgement and mood. SKIN: Normal appearance with no rashes or lesions. Course - Re-evaluation Re-evalutation: 03/06/20 19:44 Patient appears well on exam. She is not nauseous or vomiting. She was given Reglan and fluids. Patient denies any sick contacts. She did eat fast food before this started. Likely, patient can be discharged home with antiemetics and close follow-up. She is not having any abdominal pain or symptoms so I do not think she requires an ultrasound in the ER. On reassessment, patient is drinking water in the room. She is smiling and states she feels much better. I did discuss with her that she needs to follow-up with OB. I will discharge her with a short course of Reglan. I did discuss other possible causes of nausea and vomiting including Covid. Patient did want to be tested. I told her that she needs to self isolate until she is called with a negative result. Patient is very agreeable to this. She was given strict return precautions. 03/06/20 19:46 03/06/20 20:56 - Vital Signs Vital signs: Temp Pulse Resp BP Pulse Ox 98.1 F 75 20 106/66 97 03/06/20 20:51 03/06/20 20:51 03/06/20 20:51 03/06/20 20:51 03/06/20 20:51 - Laboratory Results Result Diagrams: 03/06/20 18:19 03/06/20 18:19 Laboratory Results Interpreted: 03/06/20 03/06/20 03/06/20 18:19 18:19 18:44 RDW 15.0 H Lymph % (Auto) 10.5 L Seg Neutrophils % 83.5 H Sodium 134.0 L BUN 3 L Beta HCG, Quant 52771.00 H Urine Protein 30 H Urine Ketones 80 H Urine Ascorbic Acid 40 H Critical Laboratory Results Reviewed: No Critical Results - Radiology Results Critical Radiology Results Reviewed: No Critical Results Discharge - Discharge Clinical Impression: Suspected COVID-19 virus infection Nausea and vomiting Qualifiers: Vomiting type: unspecified Vomiting Intractability: non-intractable Qualified Code(s): R11.2 - Nausea with vomiting, unspecified Condition: Stable Disposition: HOME, SELF-CARE Instructions: COVID-19 Guidance for Persons Under Investigation, Nausea or Vomiting, Nonspecific ([facility]) Additional Instructions: Your work-up today is reassuring. Please follow-up with OB. Make sure you are staying hydrated. Return to the ER immediately for any return of symptoms or worsening symptoms or abdominal pain. You have been tested for Covid. You must self isolate until you are called with a negative result. Please return to the ER for any shortness of breath or other concerning symptoms. Prescriptions: Metoclopramide HCl [Reglan] 5 mg PO TID #10 tablet Referrals: ALEX LEDESMA PA-C [Primary Care Provider] - Follow up as needed OLAMIDE ANTON MD [ACTIVE STAFF] - Follow up in 3-5 days
[2020-03-06] MEDS ORDERED: ACETAMINOPHEN 325 MG TABLET PO ONE (19:48)
[2020-03-06 20:54] VITALS: BP 106/66
== END 2020-03-06 20:55 | disposition home or self-care (01) ==
LOC: ER 17:32
DX: O21.8 Other vomiting complicating pregnancy (principal); Z3A.14 14 weeks gestation of pregnancy; Z88.3 Allergy status to other anti-infective agents; Z20.822 Contact with and (suspected) exposure to COVID-19
CPT/HCPCS: 99284; 96360; 36415; 87086; 84702; 83690; 85025; 87635; 80053; 81001; J3490 ×2; J7030; C9803